=== PATIENT | female | born 1990 | race Caucasian/White ===

== ENCOUNTER 2019-09-11 22:57 | Emergency (ER) | payer OTHER ==
--- NOTE | 2019-09-11 23:48 | ED Physician Documentation ---
History of Present Illness - Stated complaint Stated Complaint: WRIST PX/FALL - Chief complaint Chief Complaint: Trauma Ext - Additonal information Additional information: Patient comes emergency department complaining of left wrist pain after taking a fall while skateboarding. She states she came down on her palm on the cement and feels more as though she just had blunt injury to the area and then hyperextension. She states that she is able to move the wrist but range of motion is limited, secondary to midline pain on the flexor aspect. Patient denies any other injury to any other body part. She denies any pain in her fingers or more distally in her hand. Review of Systems Ten Systems: 10 systems reviewed and negative Constitutional: reports: Reviewed and negative Eyes: reports: Reviewed and negative Ears: reports: Reviewed and negative Nose: reports: Reviewed and negative Throat: reports: Reviewed and negative Cardiac: reports: Reviewed and negative Respiratory: reports: Reviewed and negative GI: reports: Reviewed and negative : reports: Reviewed and negative Skin: reports: Reviewed and negative Musculoskeletal: reports: Joint pain, Extremity swelling Neurologic: reports: Reviewed and negative Psychiatric: reports: Reviewed and negative Endocrine: reports: Reviewed and negative Immunocompromised: reports: Reviewed and negative PD PAST MEDICAL HISTORY - Past Medical History Past Medical History: No - Past Surgical History Past Surgical History: Yes 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 - Allergies Allergies/Adverse Reactions: Allergies Allergy/AdvReac Type Severity Reaction Status Date / Time No Known Drug Allergies Allergy Verified 09/11/19 23:01 - Social History Does the pt smoke?: No Smoking Status: Never smoker Does the pt drink ETOH?: No Does the pt have substance abuse?: No - Immunizations Immunizations are current?: Yes - POLST Patient has POLST: No Results - Vitals Vitals: Vital Signs - 24 hr 09/11/19 09/12/19 23:01 00:28 Temperature 36.6 C Heart Rate 67 63 Respiratory 16 18 Rate Blood Pressure 130/90 H 130/92 H O2 Saturation 100 100 Oxygen O2 Source Room air - Rads (name of study) L wrist Radiology: Prelim report reviewed, EMP read indepedently, See rad report (neg) PD MEDICAL DECISION MAKING - ED course Complexity details: reviewed results, re-evaluated patient, considered differential, d/w patient ED course: Left first x-ray was obtained and found to be negative. I have advised patient regarding her x-ray results. We have discussed home management and symptoms, as well as usual indications for return. Departure - Departure Disposition: 01 Home, Self Care Clinical Impression: Wrist contusion Qualifiers: Encounter type: initial encounter Laterality: left Qualified Code(s): S60.212A - Contusion of left wrist, initial encounter Condition: Stable Instructions: ED Contusion Hand Comments: Your x-ray does not show any broken bones the most likely, you have a bruise the tissues of the bottom of your hand on the top of your wrist. This will get better on its own in time. You may use ice, ibuprofen and Tylenol to help with the discomfort. Discharge Date/Time: 09/12/19 00:30
[2019-09-12 00:29] VITALS: BP 130/92
--- NOTE | 2019-09-12 07:31 | XRAY Report ---
PROCEDURE: Wrist 4 View LT INDICATIONS: injury TECHNIQUE: 4 views of the wrist were acquired. COMPARISON: None FINDINGS: Bones: No fractures or dislocations. No suspicious bony lesions. Scaphoid view: Scaphoid is intact Soft tissues: No suspicious soft tissue calcifications. IMPRESSION: No fracture. No osseous lesion. If there is continued clinical concern for pathology, then repeat mariella in film radiographs (7-10 days) or advanced imaging (CT, MR, bone scan) should be considered for furt her evaluation. Reviewed by: Linette Zaldivar MD, PhD on 09/12/2019 7:29 AM PDT Approved by: Linette Zaldivar MD, PhD on 09/12/2019 7:29 AM PDT Station ID: [id number]
== END 2019-09-12 00:30 | disposition home or self-care (01) ==
LOC: ED 22:57
DX: S60.212A Contusion of left wrist, initial encounter (principal); V00.131A Fall from skateboard, initial encounter; Y93.51 Activity, roller skating (inline) and skateboarding
CPT/HCPCS: 99282; 99283

== ENCOUNTER 2020-11-22 08:00 | Outpatient (CLI) | payer OTHER ==
[2020-11-23 13:07] LABS: H. PYLORIS ANTIGEN STL NEGATIVE (Negative)
== END 2020-11-22 23:59 | disposition home or self-care (01) ==
LOC: LAB.N 08:00
PROVIDERS: ATTEND Family Medicine
DX: K27.9 Peptic ulcer, site unspecified, unspecified as acute or chronic, without hemorrhage or perforation (principal)
CPT/HCPCS: 87338